=== PATIENT | male | born 1970 | race Caucasian/White ===

== ENCOUNTER 2021-06-02 00:28 | Emergency (ER) | payer OTHER ==
[~2021-06-02] VITALS: Ht 177.8 cm; Wt 79.4 kg
--- OUTSIDE RECORDS SUMMARY | 2021-06-02 00:30 | XMS ---
PreManage Notification: DEYVI FARNSWORTH Security Stick Roller Events No recent Security Events currently on file [facility] There are no care providers on record at this time. [facility] has no Care Guidelines for this patient. Nathen VISIT COUNT (12 MO.) 1 EMANUEL Vargas TOTAL 1 NOTE: Visits indicate total known visits. ED/UCC VISIT TRACKING (12 MO.) 06/02/2021 00:29 EMANUEL Jarrett OR TYPE: Emergency COMPLAINT: - ABDOMINAL PAIN INPATIENT VISIT TRACKING (12 MO.) No inpatient visits to display in this time frame [email or web address]
[2021-06-02] MEDS ORDERED: METOPROLOL SUC100 MG PO (00:46)
[2021-06-02] MEDS ORDERED: OMEPRAZOLE40 MG PO (00:47)
[2021-06-02] MEDS ORDERED: ZANAFLEX4 MG PO (00:47)
[2021-06-02] MEDS ORDERED: ONDANSETRON HCL8 MG PO (00:47)
[2021-06-02] MEDS ORDERED: PEPCID20 MG PO (05:26)
--- NOTE | 2021-06-02 07:14 | EKG ---
[facility] [address] [facility] [place], [place] [address] Signed Sinus tachycardia Left axis deviation Inferior infarct , age undetermined Abnormal ECG No previous ECGs available Confirmed by STAR JUEN MD ([id number]) on 06/02/2021 7:13:51 AM Electronically Signed By: STAR JUNE MD 06/02/2114 PATIENT NAME: FARNSWORTHGIANNINicol Hernandez Electrocardiogram DATE OF : 70 PHYSICIAN: STAR JUNE MD REPORT #: [id number] REPORT IS CONFIDENTIAL AND NOT TO BE RELEASED WITHOUT AUTHORIZATION
== END 2021-06-02 05:42 | disposition home or self-care (01) ==
LOC: ED 00:28
DX: R10.10 Upper abdominal pain, unspecified (principal); I10 Essential (primary) hypertension; F17.200 Nicotine dependence, unspecified, uncomplicated; Z88.6 Allergy status to analgesic agent; Z79.899 Other long term (current) drug therapy
CPT/HCPCS: 71045; 80053; 81001; 83690; 84484; 85025; 93005; 93010; 96374; 99284-25; G0480; J7121